=== PATIENT | male | born 1985 | race Caucasian/White ===

== ENCOUNTER 2020-08-21 18:14 | Emergency (ER) | payer BC ==
[2020-08-21 19:51] LABS: #Basophils 0.1 thou/uL (0.0-0.2); #Lymphocytes 2.2 thou/uL (1.20-3.40); #Monocytes 0.5 thou/uL (0.11-0.59); #Neutrophils 3.9 thou/uL (1.40-6.50); %Basophils 1.4 % (0.0-1.0); %Eosinophils 0.1 % (0.0-10.0); %Lymphocytes 33.6 % (21.0-51.0); %Monocytes 6.8 % (0.0-10.0); %Neutrophils 58.2 % (42.0-75.0); Hemoglobin 19.6 g/dL (14.0-18.0); Mean Corpuscular HGB CONC 31.7 g/dL (32.0-36.0); Mean Corpuscular Hemoglobin 30.7 pg (27.0-31.0); Mean Platelet Volume 6.6 fL (7.4-10.4); Platelet Count 220 thou/uL (130-400); RBC Distribution Width 12.7 % (11.5-14.5); Red Blood Cell (RBC) Count 6.38 mill/uL (4.70-6.10); White Blood Cell (WBC) Count 6.6 thou/uL (4.8-10.8)
[2020-08-21] MEDS ORDERED: Sodium Chloride 0.9% 1,000 ML ONE (19:54)
[2020-08-21 20:02] LABS: Acetaminophen Less than 6.0 mcg/mL (10.0-30.0); Salicylate Less than 8.0 mg/dL (15.0-30.0)
[2020-08-21 20:04] LABS: ALT (SGPT) 64 U/L (8-55); AST (SGOT) 110 U/L (5-34); Albumin 4.2 g/dL (3.5-5.0); Alkaline Phosphatase 62 U/L (40-110); Anion Gap 23 mmol/L (10-20); BUN (Urea Nitrogen) 12 mg/dL (8.9-20.6); Bilirubin, Total 0.8 mg/dL (0.2-1.2); Calc. Creatinine Clearance 0 mL/min (70-130); Calcium 8.2 mg/dL (7.8-10.44); Carbon Dioxide 22 mmol/L (22-29); Chloride 102 mmol/L (98-107); Globulin 3.7 g/dL (2.4-3.5); Glucose 115 mg/dL (70-105); Potassium 4.1 mmol/L (3.5-5.1); Protein, Total 7.9 g/dL (6.0-8.3); Sodium 143 mmol/L (136-145)
[2020-08-21 20:05] LABS: Amphetamine Not Detected (NotDetected); Barbiturates Screen Not Detected (NotDetected); Benzodiazepine Screen Not Detected (NotDetected); Cocaine Metabolite Screen Not Detected (NotDetected); Medtox Control Line Valid? VALID (VALID); Methadone Not Detected (NotDetected); Methamphetamine Not Detected (NotDetected); Opiate Screen Not Detected (NotDetected); Oxycodone Screen Not Detected (NotDetected); Phencyclidine (PCP) Not Detected (NotDetected); THC/Cannabinoid Screen Not Detected (NotDetected); Tricyclic Screen Not Detected (NotDetected)
[2020-08-21 20:07] LABS: Target Cells SLIGHT = 2-5 cells (100X) (0-1/hpf)
[2020-08-21 20:08] LABS: Platelet Morphology Comment Appears Adequate
[2020-08-21 20:11] LABS: Alcohol 415 mg/dL (Less than 10)
[2020-08-21] MEDS ORDERED: Lorazepam 2 MG/ML VIAL ONE ×2 (20:27→23:04)
[2020-08-22] MEDS ORDERED: Ondansetron PF 4 MG/2 ML Vial ONE (07:57)
[2020-08-22] MEDS ORDERED: Promethazine HCl 25 MG/ML VIAL ONE (08:00)
[2020-08-22] MEDS ORDERED: Lorazepam 2 MG/ML VIAL ONE ×2 (09:12→09:52)
[2020-08-22] MEDS ORDERED: Metoprolol Tartrate 5 MG/5 ML VIAL ONE (09:45)
[2020-08-22] MEDS ORDERED: Sodium Chloride 0.9% 1,000 ML ONE (11:21)
== END 2020-08-22 12:37 | disposition home or self-care (01) ==
LOC: MADERS 18:14
DX: F32.9 Major depressive disorder, single episode, unspecified (principal); F10.229 Alcohol dependence with intoxication, unspecified; I10 Essential (primary) hypertension; Z79.899 Other long term (current) drug therapy
CPT/HCPCS: 36415; 80053; 80306; 80307; 84443; 85025; 96365; 96375; 96376; J2060; J2405; J2550; J7050